=== PATIENT | female | born 1990 | race Caucasian/White ===

== ENCOUNTER 2022-01-03 21:09 | Emergency (ER) | payer MEDICAID ==
[~2022-01-03] VITALS: Ht 167.6 cm; Wt 85.0 kg
[2022-01-03] MEDS ORDERED: AZEL205.2 NS (21:44)
[2022-01-03] MEDS ORDERED: OXYMETAZOLINE 0.05% NASAL SPRAY 30ML BOTTLE. NS ONE (21:45)
--- NOTE | 2022-01-03 21:46 | PHYS DOC ---
General Adult EDM: Chief Complaint: ALLERGIES HPI: HPI: Patient is a 31-year-old female coming in with chief complaint of difficulty breathing. Patient states she has been congested and cannot breathe through her nose. Also complained of sore throat in the mornings. Patient states she was recently out of her Advair discus but got it back today. Denies any cough, fevers, ear pain. History of seasonal allergies but does not take any antihistamines for them. Review of Systems: Review of Systems: All other systems within normal limits except for as noted in the HPI Physical Exam: PE: Constitutional: Well developed, well nourished, no acute distress, non-toxic appearance. [] HENT: Normocephalic, atraumatic, bilateral external ears normal, nose normal. Noninflamed turbinates, no nasal drainage, tenderness over maxillary sinuses [] Eyes: PERRLA, conjunctiva normal, no discharge. [] Neck: No rigidity, supple, no stridor. [] Cardiovascular: Regular rate and rhythm, brisk cap refill [] Lungs & Thorax: Non labored symmetric respirations, no tachypnea or respiratory distress [] Abdomen: Soft, nondistended. Skin: Warm, dry, no erythema, no rash. [] Back: Unremarkable Extremities: No deformities, range of motion grossly intact, no lower extremity edema [] Neurologic: Alert and oriented X 3, no focal deficits noted. [] Psychologic: Affect normal, judgement normal, mood normal. [] EKG: EKG: [] Radiology/Procedures: Radiology/Procedures: [] Heart Score: C/O Chest Pain: No Risk Factors: Risk Factors: DM, Current or recent (<one month) smoker, HTN, HLP, family history of CAD, obesity. Risk Scores: Score 0 - 3: 2.5% MACE over next 6 weeks - Discharge Home Score 4 - 6: 20.3% MACE over next 6 weeks - Admit for Clinical Observation Score 7 - 10: 72.7% MACE over next 6 weeks - Early Invasive Strategies Course & Med Decision Making: Course & Med Decision Making Pertinent Labs and Imaging studies reviewed. (See chart for details) [] Dragon Disclaimer: Dragon Disclaimer: This electronic medical record was generated, in whole or in part, using a voice recognition dictation system. Departure Departure: Impression: Primary Impression: Congestion of nasal sinus Disposition: HOME / SELF CARE / HOMELESS Condition: STABLE Referrals: ELIZA CERDA Patient Instructions: Sinusitis, [id number] Additional Instructions: Use Afrin until you get the prescription nasal spray. Use dzki-yeq-malsslo decongestant and antihistamine such as Aide, Zyrtec, and Mucinex. Drink plenty of water and use a humidifier at night Scripts Azelastine HCl (Azelastine HCl) 205.5 Mcg/0.137 Ml [place].pump 2 SPR NS BID for congestion for 30 Days, #30 ML 0 Refills Prov: STACI HOLMAN MD 01/03/22 STACI HOLMAN MD Jan 03, 2022 21:46
[2022-01-03 22:20] VITALS: BP 136/75
== END 2022-01-03 22:20 | disposition home or self-care (01) ==
LOC: ER 21:09
DX: R09.81 Nasal congestion (principal); R06.00 Dyspnea, unspecified; J02.9 Acute pharyngitis, unspecified
CPT/HCPCS: 99283